=== PATIENT | female | born 1995 | race African-American/Black ===

== ENCOUNTER 2018-02-11 22:38 | Inpatient (IN) ==
[2018-02-12 00:36] LABS: Basophils % 0.2 % (0.0-0.8); Eosinophils % 0.1 % (0.00-10.9); Hematocrit 33.5 VOL% (35.7-47.0); Hemoglobin 10.9 GM/DL (12.0-16.0); Immature Granulocytes % 0.4 %; Immature Granulocytes Absolute 0.06 #; Lymphocytes # 1.5 10*3/uL (1.4-4.0); Lymphocytes % 9.8 % (21.3-54.2); Mean Corpuscular HGB Conc 32.5 GM/DL (32-36); Mean Corpuscular Hemoglobin 21 PG (27-34); Mean Corpuscular Volume 62.9 FL (87-102); Mean Platelet Volume 9.9 FL (9.6-12.0); Monocytes # 1.9 10*3/uL (0.11-0.8); Monocytes % 12.3 % (1.7-12.7); Neutrophils % 77.2 % (38.7-73.9); Platelet Count 239 T/CUMM (130-400); Red Blood Count 5.33 MC/CUMM (3.8-5.5); Red Cell Distribution Width 15.1 % (9.3-17.3); White Blood Count 15.5 T/CUMM (4-12)
[2018-02-12 00:53] LABS: Albumin 3.3 G/DL (3.4-5.0); Bilirubin,Total 0.7 MG/DL (0.2-1.0); Calcium 8.4 MG/DL (8.5-10.1); Lactic Acid 0.9 MMOL/L (0.4-2.0); Osmolality,Calculated 272.8 MOS/KG (273-304); Potassium 3.6 MMOL/L (3.5-5.1); Total Protein 7.6 G/DL (6.4-8.3)
[2018-02-12 02:05] LABS: Apearance,Urine CLEAR (Clear); Bacteria,Urine Occasional /HPF (Few); Bilirubin,Urine Negative (Negative); Blood, Urine Moderate mg/dL (Negative); Glucose,Urine (UA) Negative (Negative); Ketones,Urine 20 mg/dL (Negative); Nitrite,Urine Negative (Negative); Protein,Urine Negative; RBC,Urine 8 /HPF (0-4); Renal Epithelial Cells,Urine Occasional /HPF (<1); Squamous Epithelial Cell,Urine Occasional /HPF (0-10); Urine Color Yellow (Yellow); Urine Specific Gravity 1.014 (1.001-1.035); WBC,Urine 17 /HPF (0-6)
[2018-02-13 05:33] LABS: Basophils % 0.2 % (0.0-0.8); Eosinophils # 0.1 10*3/uL (0.0-0.87); Eosinophils % 0.5 % (0.00-10.9); Hematocrit 30.3 VOL% (35.7-47.0); Hemoglobin 9.7 GM/DL (12.0-16.0); Immature Granulocytes % 0.5 %; Immature Granulocytes Absolute 0.05 #; Lymphocytes # 1.3 10*3/uL (1.4-4.0); Lymphocytes % 12.1 % (21.3-54.2); Mean Corpuscular Hemoglobin 21 PG (27-34); Mean Corpuscular Volume 64.7 FL (87-102); Mean Platelet Volume 9.7 FL (9.6-12.0); Monocytes # 1.5 10*3/uL (0.11-0.8); Monocytes % 14.6 % (1.7-12.7); Neutrophils # 7.5 10*3/uL (1.4-7.4); Neutrophils % 72.1 % (38.7-73.9); Platelet Count 207 T/CUMM (130-400); Red Blood Count 4.68 MC/CUMM (3.8-5.5); White Blood Count 10.4 T/CUMM (4-12)
[2018-02-13 06:08] LABS: Calcium 8.2 MG/DL (8.5-10.1); Osmolality,Calculated 273.5 MOS/KG (273-304); Potassium 3.8 MMOL/L (3.5-5.1)
[2018-02-14 07:51] LABS: Basophils % 0.2 % (0.0-0.8); Eosinophils % 0.4 % (0.00-10.9); Hematocrit 28.5 VOL% (35.7-47.0); Hemoglobin 9.5 GM/DL (12.0-16.0); Immature Granulocytes % 0.5 %; Immature Granulocytes Absolute 0.05 #; Lymphocytes # 1.5 10*3/uL (1.4-4.0); Lymphocytes % 16.5 % (21.3-54.2); Mean Corpuscular HGB Conc 33.3 GM/DL (32-36); Mean Corpuscular Hemoglobin 21 PG (27-34); Mean Corpuscular Volume 62.2 FL (87-102); Mean Platelet Volume 10.3 FL (9.6-12.0); Monocytes # 1.1 10*3/uL (0.11-0.8); Monocytes % 11.8 % (1.7-12.7); Neutrophils # 6.5 10*3/uL (1.4-7.4); Neutrophils % 70.6 % (38.7-73.9); Platelet Count 213 T/CUMM (130-400); Red Blood Count 4.58 MC/CUMM (3.8-5.5); Red Cell Distribution Width 14.8 % (9.3-17.3); White Blood Count 9.2 T/CUMM (4-12)
[2018-02-14 08:27] LABS: Calcium 8.1 MG/DL (8.5-10.1); Osmolality,Calculated 273.5 MOS/KG (273-304); Potassium 3.4 MMOL/L (3.5-5.1)
[2018-02-15 06:46] LABS: Basophils % 0.4 % (0.0-0.8); Eosinophils # 0.2 10*3/uL (0.0-0.87); Eosinophils % 2.9 % (0.00-10.9); Hematocrit 28.7 VOL% (35.7-47.0); Hemoglobin 9.4 GM/DL (12.0-16.0); Immature Granulocytes % 0.3 %; Immature Granulocytes Absolute 0.02 #; Lymphocytes % 26.4 % (21.3-54.2); Mean Corpuscular HGB Conc 32.8 GM/DL (32-36); Mean Corpuscular Hemoglobin 21 PG (27-34); Mean Corpuscular Volume 62.5 FL (87-102); Mean Platelet Volume 10.5 FL (9.6-12.0); Monocytes # 0.9 10*3/uL (0.11-0.8); Monocytes % 11.5 % (1.7-12.7); Neutrophils # 4.4 10*3/uL (1.4-7.4); Neutrophils % 58.5 % (38.7-73.9); Platelet Count 251 T/CUMM (130-400); Red Blood Count 4.59 MC/CUMM (3.8-5.5); White Blood Count 7.6 T/CUMM (4-12)
[2018-02-15 07:00] LABS: Calcium 8.6 MG/DL (8.5-10.1); Osmolality,Calculated 282.8 MOS/KG (273-304); Potassium 3.5 MMOL/L (3.5-5.1)
[2018-02-15 07:39] VITALS: BP 149/92
== END 2018-02-15 11:20 | disposition home or self-care (01) | DRG 690 ==
LOC: N.EDINP 22:38 → N.ED 22:38 → SUATTDRO 02-12 01:08 → N.2E 02-12 02:05 → SUATTDRO 02-13 10:29
PROVIDERS: ADMIT Internal Medicine; ATTEND Internal Medicine

== ENCOUNTER 2019-06-24 06:16 | Inpatient (IN) ==
[2019-06-24] MEDS ORDERED: ONDANSETRON 4 MG/2 ML VIAL ONE ×2 (06:36→15:34)
[2019-06-24] MEDS ORDERED: ONDANSETRON 4 MG/2 ML VIAL IV STA ×2 (06:41→06:56)
[2019-06-24 06:43] LABS: Basophils % 0.3 % (0.0-0.8); Eosinophils # 0.1 10*3/uL (0.0-0.87); Eosinophils % 0.3 % (0.00-10.9); Hematocrit 38.8 VOL% (35.7-47.0); Hemoglobin 12.2 GM/DL (12.0-16.0); Immature Granulocytes % 0.4 %; Immature Granulocytes Absolute 0.06 #; Lymphocytes # 1.5 10*3/uL (1.4-4.0); Lymphocytes % 9.7 % (21.3-54.2); Mean Corpuscular HGB Conc 31.4 GM/DL (32-36); Mean Corpuscular Volume 65.8 FL (87-102); Mean Platelet Volume 9.8 FL (9.6-12.0); Monocytes % 5.5 % (1.7-12.7); Neutrophils % 83.8 % (38.7-73.9); Platelet Count 341 T/CUMM (130-400); Red Cell Distribution Width 16.1 % (9.3-17.3)
[2019-06-24] MEDS ORDERED: SODIUM CHLORIDE 0.9% 1,000 ML IV STA (06:56)
[2019-06-24] MEDS ORDERED: HYDROmorphone 2 MG/1 ML VIAL IV STA (06:56)
[2019-06-24 07:03] LABS: Albumin 3.8 G/DL (3.4-5.0); Bilirubin,Total 0.6 MG/DL (0.2-1.0); Calcium 9.5 MG/DL (8.5-10.1); Total Protein 8.6 G/DL (6.4-8.3)
[2019-06-24 08:01] LABS: Apearance,Urine CLEAR (Clear); Bacteria,Urine Occasional /HPF (Few); Bilirubin,Urine Negative (Negative); Blood, Urine Negative (Negative); Glucose,Urine (UA) Negative (Negative); Ketones,Urine 80 mg/dL (Negative); Mucus,Urine Many /LPF (Occasional); Nitrite,Urine Negative (Negative); Protein,Urine 100 MG/DL; RBC,Urine 7 /HPF (0-4); Squamous Epithelial Cell,Urine Occasional /HPF (0-10); Urine Color Yellow (Yellow); Urine Specific Gravity 1.033 (1.001-1.035); Urine Urobilinogen < 2.0 EU/DL (0.2-1.0); WBC,Urine <1 /HPF (0-6)
[2019-06-24] MEDS ORDERED: AMPICILLIN/SULBACTAM 3,000 MG in SODIUM CHLORIDE 0.9% 100 ML IV STA (09:29)
[2019-06-24] MEDS ORDERED: cefOXitin 2,000 MG in SYRINGE 1 EACH IV ONE (11:00)
[2019-06-24] MEDS ORDERED: fentaNYL 100 MCG/2 ML VIAL ONE ×3 (13:17→15:39)
[2019-06-24] MEDS ORDERED: TISSUE ADHESIVE 1 EACH APPLICATOR TOP ONE (13:19)
[2019-06-24] MEDS ORDERED: BUPIVACAINE 0.25% /EPI 10 ML VIAL ONE (13:19)
[2019-06-24] MEDS ORDERED: LIDOCAINE 1%/EPI INJ 20 ML VIAL ONE (13:19)
[2019-06-24] MEDS ORDERED: fentaNYL 100 MCG/2 ML VIAL IV ONE (13:24)
[2019-06-24] MEDS ORDERED: LACTATED RINGERS 1,000 ML IV SCH (13:30)
[2019-06-24] MEDS ORDERED: SUGAMMADEX 200 MG/2 ML VIAL IV ONE (14:21)
[2019-06-24] MEDS ORDERED: LIDOCAINE 2% 5 ML VIAL ONE (15:33)
[2019-06-24] MEDS ORDERED: SEVOFLURANE 1 UNIT/15 MINUTE INH ONE (15:33)
[2019-06-24] MEDS ORDERED: propofoL 200 MG/20 ML VIAL IV ONE (15:33)
[2019-06-24] MEDS ORDERED: DEXAMETHASONE 4 MG/1 ML VIAL ONE (15:34)
[2019-06-24] MEDS ORDERED: MIDAZOLAM 2 MG/2 ML VIAL ONE (15:34)
[2019-06-24] MEDS ORDERED: ROCURONIUM 100 MG/10 ML VIAL IV ONE (15:34)
[2019-06-24] MEDS ORDERED: PHENYLEPHRINE 1 MG/10 ML SYRINGE IV ONE (15:34)
[2019-06-24] MEDS ORDERED: LACTATED RINGERS 1,000 ML IV ONE (15:34)
[2019-06-24] MEDS ORDERED: KETOROLAC 30 MG/1 ML VIAL ONE (15:34)
[2019-06-24] MEDS ORDERED: ACETAMINOPHEN 1,000 MG/100 ML VIAL IV ONE (15:34)
[2019-06-24] MEDS: LACTATED RINGERS 1,000 ML IV SCH (16:10)
[2019-06-24 17:30] LABS: Basophils % 0.1 % (0.0-0.8); Hematocrit 37.1 VOL% (35.7-47.0); Hemoglobin 11.6 GM/DL (12.0-16.0); Immature Granulocytes % 0.7 %; Immature Granulocytes Absolute 0.16 #; Lymphocytes # 0.4 10*3/uL (1.4-4.0); Lymphocytes % 1.8 % (21.3-54.2); Mean Corpuscular HGB Conc 31.3 GM/DL (32-36); Mean Corpuscular Volume 66.7 FL (87-102); Mean Platelet Volume 10.7 FL (9.6-12.0); Monocytes % 4.8 % (1.7-12.7); Neutrophils % 92.6 % (38.7-73.9); Platelet Count 296 T/CUMM (130-400); Red Blood Count 5.56 MC/CUMM (3.8-5.5); Red Cell Distribution Width 15.6 % (9.3-17.3); White Blood Count 21.6 T/CUMM (4-12)
[2019-06-24 17:48] LABS: Calcium 8.7 MG/DL (8.5-10.1); Osmolality,Calculated 273.8 MOS/KG (273-304)
[2019-06-24] MEDS: KETOROLAC 15 MG/1 ML VIAL IV SCH ×2 (17:52→22:23)
[2019-06-24 18:07] LABS: Band Neutrophils 2 % (0-10); Lymphocytes 1 % (20-55); Platelet Estimate Normal; Segmented Neutrophils 93 % (50-85); Total Cells Counted 100
[2019-06-24 18:08] LABS: Anisocytosis Slight; Ovalocytes Few
[2019-06-25] MEDS: LACTATED RINGERS 1,000 ML IV SCH ×2 (00:18→08:24)
[2019-06-25] MEDS: ONDANSETRON 4 MG/2 ML VIAL IV PRN (00:19)
[2019-06-25] MEDS: HYDROmorphone 2 MG/1 ML VIAL IV PRN ×3 (00:19→20:32)
[2019-06-25] MEDS: KETOROLAC 15 MG/1 ML VIAL IV SCH ×4 (03:27→22:46)
[2019-06-25 05:32] LABS: Basophils % 0.1 % (0.0-0.8); Hematocrit 31.4 VOL% (35.7-47.0); Hemoglobin 9.9 GM/DL (12.0-16.0); Immature Granulocytes % 0.5 %; Immature Granulocytes Absolute 0.11 #; Lymphocytes # 1.2 10*3/uL (1.4-4.0); Lymphocytes % 5.5 % (21.3-54.2); Mean Corpuscular HGB Conc 31.5 GM/DL (32-36); Mean Corpuscular Volume 65.7 FL (87-102); Mean Platelet Volume 10.7 FL (9.6-12.0); Monocytes % 6.1 % (1.7-12.7); Neutrophils % 87.8 % (38.7-73.9); Platelet Count 255 T/CUMM (130-400); Red Blood Count 4.78 MC/CUMM (3.8-5.5); Red Cell Distribution Width 15.2 % (9.3-17.3); White Blood Count 22.2 T/CUMM (4-12)
[2019-06-25 05:47] LABS: Calcium 8.5 MG/DL (8.5-10.1); Osmolality,Calculated 278.5 MOS/KG (273-304)
[2019-06-25 05:55] LABS: Hypochromasia 1+; Lymphocytes 10 % (20-55); Ovalocytes Slight; Platelet Estimate Adequate; Segmented Neutrophils 82 % (50-85); Total Cells Counted 100
[2019-06-25] MEDS: PIPERACILLIN/TAZOBACTAM 3,375 MG in SODIUM CHLORIDE 0.9% 100 ML IV SCH ×3 (07:17→22:46)
[2019-06-25] MEDS: ENOXAPARIN 40 MG/0.4 ML SYRINGE SUBCUT SCH (09:24)
[2019-06-26] MEDS: KETOROLAC 15 MG/1 ML VIAL IV SCH ×4 (04:41→21:06)
[2019-06-26] MEDS: HYDROmorphone 2 MG/1 ML VIAL IV PRN (04:42)
[2019-06-26 04:48] LABS: Basophils % 0.1 % (0.0-0.8); Eosinophils % 0.2 % (0.00-10.9); Hematocrit 29.2 VOL% (35.7-47.0); Hemoglobin 9.4 GM/DL (12.0-16.0); Immature Granulocytes % 0.5 %; Immature Granulocytes Absolute 0.08 #; Lymphocytes # 1.4 10*3/uL (1.4-4.0); Lymphocytes % 8.9 % (21.3-54.2); Mean Corpuscular HGB Conc 32.2 GM/DL (32-36); Mean Corpuscular Volume 64.6 FL (87-102); Mean Platelet Volume 10.6 FL (9.6-12.0); Neutrophils % 83.3 % (38.7-73.9); Platelet Count 227 T/CUMM (130-400); Red Blood Count 4.52 MC/CUMM (3.8-5.5); Red Cell Distribution Width 15.3 % (9.3-17.3); White Blood Count 15.8 T/CUMM (4-12)
[2019-06-26 05:27] LABS: Calcium 8.3 MG/DL (8.5-10.1); Osmolality,Calculated 272.8 MOS/KG (273-304)
[2019-06-26] MEDS: PIPERACILLIN/TAZOBACTAM 3,375 MG in SODIUM CHLORIDE 0.9% 100 ML IV SCH ×3 (06:20→23:31)
[2019-06-26] MEDS: ONDANSETRON 4 MG/2 ML VIAL IV PRN ×2 (08:09→21:30)
[2019-06-26 08:43] LABS: Apearance,Urine CLEAR (Clear); Bilirubin,Urine Negative (Negative); Blood, Urine Negative (Negative); Glucose,Urine (UA) Negative (Negative); Ketones,Urine 20 mg/dL (Negative); Mucus,Urine Occasional /LPF (Occasional); Nitrite,Urine Negative (Negative); Protein,Urine 100 MG/DL; RBC,Urine 5 /HPF (0-4); Squamous Epithelial Cell,Urine Occasional /HPF (0-10); Urine Color Amber (Yellow); Urine Specific Gravity 1.036 (1.001-1.035); Urine Urobilinogen < 2.0 EU/DL (0.2-1.0); WBC,Urine 1 /HPF (0-6)
[2019-06-26] MEDS: ENOXAPARIN 40 MG/0.4 ML SYRINGE SUBCUT SCH (09:31)
[2019-06-26] MEDS: POTASSIUM CHLORIDE 20 MEQ TABLET PO PRN ×4 (09:31→16:18)
[2019-06-27] MEDS: KETOROLAC 15 MG/1 ML VIAL IV SCH ×2 (03:00→09:01)
[2019-06-27] MEDS: PIPERACILLIN/TAZOBACTAM 3,375 MG in SODIUM CHLORIDE 0.9% 100 ML IV SCH (06:18)
[2019-06-27 07:40] LABS: Basophils % 0.2 % (0.0-0.8); Eosinophils # 0.1 10*3/uL (0.0-0.87); Eosinophils % 0.8 % (0.00-10.9); Hematocrit 27.9 VOL% (35.7-47.0); Hemoglobin 8.9 GM/DL (12.0-16.0); Immature Granulocytes % 0.7 %; Immature Granulocytes Absolute 0.11 #; Lymphocytes # 1.4 10*3/uL (1.4-4.0); Lymphocytes % 8.6 % (21.3-54.2); Mean Corpuscular HGB Conc 31.9 GM/DL (32-36); Mean Corpuscular Volume 65.5 FL (87-102); Mean Platelet Volume 10.4 FL (9.6-12.0); Monocytes % 7.7 % (1.7-12.7); Platelet Count 244 T/CUMM (130-400); Red Blood Count 4.26 MC/CUMM (3.8-5.5); Red Cell Distribution Width 14.9 % (9.3-17.3); White Blood Count 16.4 T/CUMM (4-12)
[2019-06-27 08:04] LABS: Calcium 8.4 MG/DL (8.5-10.1); Osmolality,Calculated 271.8 MOS/KG (273-304)
[2019-06-27] MEDS: ONDANSETRON 4 MG/2 ML VIAL IV PRN ×2 (09:01→18:01)
[2019-06-27] MEDS: AMOXICILLIN/CLAV 875 MG TABLET PO SCH ×2 (09:01→20:45)
[2019-06-27] MEDS: ENOXAPARIN 40 MG/0.4 ML SYRINGE SUBCUT SCH (09:02)
[2019-06-28 04:41] LABS: Basophils % 0.2 % (0.0-0.8); Eosinophils # 0.1 10*3/uL (0.0-0.87); Eosinophils % 0.5 % (0.00-10.9); Hematocrit 30.3 VOL% (35.7-47.0); Hemoglobin 9.7 GM/DL (12.0-16.0); Immature Granulocytes % 0.6 %; Immature Granulocytes Absolute 0.13 #; Mean Corpuscular Volume 64.9 FL (87-102); Mean Platelet Volume 10.1 FL (9.6-12.0); Monocytes % 7.9 % (1.7-12.7); Neutrophils % 80.8 % (38.7-73.9); Platelet Count 299 T/CUMM (130-400); Red Blood Count 4.67 MC/CUMM (3.8-5.5); Red Cell Distribution Width 14.7 % (9.3-17.3); White Blood Count 20.1 T/CUMM (4-12)
[2019-06-28 05:17] LABS: Band Neutrophils 1 % (0-10); Hypochromasia 2+; Lymphocytes 10 % (20-55); Platelet Estimate Normal; Polychromasia Few; Segmented Neutrophils 84 % (50-85); Total Cells Counted 100
[2019-06-28 05:20] LABS: Calcium 8.7 MG/DL (8.5-10.1); Osmolality,Calculated 274.5 MOS/KG (273-304)
[2019-06-28] MEDS: AMOXICILLIN/CLAV 875 MG TABLET PO SCH (08:15)
[2019-06-28] MEDS: ENOXAPARIN 40 MG/0.4 ML SYRINGE SUBCUT SCH (08:47)
[2019-06-28] MEDS: PIPERACILLIN/TAZOBACTAM 3,375 MG in SODIUM CHLORIDE 0.9% 100 ML IV SCH ×2 (09:30→16:30)
[2019-06-28] MEDS: ONDANSETRON 4 MG/2 ML VIAL IV PRN ×2 (09:32→16:27)
[2019-06-28] MEDS: HYDROmorphone 2 MG/1 ML VIAL IV PRN ×2 (09:50→19:45)
[2019-06-28] MEDS: PROMETHAZINE 25 MG/1 ML VIAL IM PRN (19:46)
[2019-06-29] MEDS: PIPERACILLIN/TAZOBACTAM 3,375 MG in SODIUM CHLORIDE 0.9% 100 ML IV SCH ×3 (00:35→20:44)
[2019-06-29] MEDS: ONDANSETRON 4 MG/2 ML VIAL IV PRN ×2 (08:11→20:36)
[2019-06-29] MEDS: POTASSIUM CHLORIDE 20 MEQ TABLET PO PRN (08:12)
[2019-06-29] MEDS: PROMETHAZINE 25 MG/1 ML VIAL IM PRN (11:35)
[2019-06-29] MEDS: HYDROmorphone 2 MG/1 ML VIAL IV PRN (20:41)
[2019-06-29] MEDS: ENOXAPARIN 40 MG/0.4 ML SYRINGE SUBCUT SCH (20:43)
[2019-06-30] MEDS: ONDANSETRON 4 MG/2 ML VIAL IV PRN ×5 (01:01→23:37)
[2019-06-30] MEDS: HYDROmorphone 2 MG/1 ML VIAL IV PRN ×2 (03:29→19:42)
[2019-06-30] MEDS: PROMETHAZINE 25 MG/1 ML VIAL IM PRN (03:29)
[2019-06-30] MEDS: PIPERACILLIN/TAZOBACTAM 3,375 MG in SODIUM CHLORIDE 0.9% 100 ML IV SCH (05:12)
[2019-06-30] MEDS: CIPROFLOXACIN INJ 400 MG in PREMIX 1 EACH IV SCH ×2 (11:07→22:24)
[2019-06-30] MEDS: SCOPOLAMINE 1.5 MG PATCH TRANSDERM SCH (16:19)
[2019-06-30] MEDS: LACTATED RINGERS 1,000 ML IV SCH (17:30)
[2019-06-30] MEDS: ZALEPLON 5 MG CAPSULE PO PRN ×2 (23:38→23:55)
[2019-07-01] MEDS: LACTATED RINGERS 1,000 ML IV SCH ×3 (04:23→21:21)
[2019-07-01] MEDS: ONDANSETRON 4 MG/2 ML VIAL IV PRN ×5 (04:24→22:01)
[2019-07-01] MEDS: HYDROmorphone 2 MG/1 ML VIAL IV PRN ×3 (04:32→21:28)
[2019-07-01 05:49] LABS: Basophils % 0.2 % (0.0-0.8); Eosinophils # 0.3 10*3/uL (0.0-0.87); Eosinophils % 2.3 % (0.00-10.9); Hematocrit 28.5 VOL% (35.7-47.0); Immature Granulocytes % 0.8 %; Immature Granulocytes Absolute 0.11 #; Lymphocytes # 2.2 10*3/uL (1.4-4.0); Lymphocytes % 15.3 % (21.3-54.2); Mean Corpuscular HGB Conc 31.6 GM/DL (32-36); Mean Corpuscular Volume 64.5 FL (87-102); Mean Platelet Volume 10.3 FL (9.6-12.0); Monocytes % 9.1 % (1.7-12.7); Neutrophils % 72.3 % (38.7-73.9); Platelet Count 308 T/CUMM (130-400); Red Blood Count 4.42 MC/CUMM (3.8-5.5); Red Cell Distribution Width 14.6 % (9.3-17.3); White Blood Count 14.1 T/CUMM (4-12)
[2019-07-01 06:10] LABS: Hypochromasia 2+; Target Cells Few
[2019-07-01 06:11] LABS: Microcytosis 1+; Ovalocytes Slight; Polychromasia Slight
[2019-07-01 06:12] LABS: Platelet Estimate Normal
[2019-07-01 06:20] LABS: Calcium 8.4 MG/DL (8.5-10.1); Osmolality,Calculated 281.1 MOS/KG (273-304)
[2019-07-01] MEDS: CIPROFLOXACIN INJ 400 MG in PREMIX 1 EACH IV SCH ×2 (09:07→21:19)
[2019-07-01] MEDS: PROMETHAZINE 25 MG/1 ML VIAL IM PRN (19:14)
[2019-07-02] MEDS: ONDANSETRON 4 MG/2 ML VIAL IV PRN ×3 (04:53→19:30)
[2019-07-02] MEDS: HYDROmorphone 2 MG/1 ML VIAL IV PRN ×2 (05:15→12:41)
[2019-07-02] MEDS: LACTATED RINGERS 1,000 ML IV SCH ×2 (05:21→19:35)
[2019-07-02] MEDS: CIPROFLOXACIN INJ 400 MG in PREMIX 1 EACH IV SCH ×2 (10:43→22:45)
[2019-07-02] MEDS: ENOXAPARIN 40 MG/0.4 ML SYRINGE SUBCUT SCH (10:43)
[2019-07-02] MEDS: PROMETHAZINE 25 MG/1 ML VIAL IM PRN ×2 (12:42→21:13)
[2019-07-03] MEDS: LACTATED RINGERS 1,000 ML IV SCH ×2 (05:11→07:38)
[2019-07-03 07:48] VITALS: BP 143/85
[2019-07-03 07:51] LABS: Basophils % 0.3 % (0.0-0.8); Eosinophils # 0.4 10*3/uL (0.0-0.87); Eosinophils % 3.1 % (0.00-10.9); Hematocrit 30.2 VOL% (35.7-47.0); Hemoglobin 9.8 GM/DL (12.0-16.0); Immature Granulocytes Absolute 0.13 #; Lymphocytes % 14.9 % (21.3-54.2); Mean Corpuscular HGB Conc 32.5 GM/DL (32-36); Mean Corpuscular Volume 64.4 FL (87-102); Monocytes % 6.4 % (1.7-12.7); Neutrophils % 74.3 % (38.7-73.9); Platelet Count 321 T/CUMM (130-400); Red Blood Count 4.69 MC/CUMM (3.8-5.5); Red Cell Distribution Width 14.8 % (9.3-17.3); White Blood Count 13.4 T/CUMM (4-12)
[2019-07-03 08:11] LABS: Calcium 8.4 MG/DL (8.5-10.1); Osmolality,Calculated 269.8 MOS/KG (273-304)
[2019-07-03] MEDS ORDERED: CIPROFLOXACIN 500 MG TABLET PO SCH (09:00)
[2019-07-03] MEDS: SCOPOLAMINE 1.5 MG PATCH TRANSDERM SCH (09:29)
[2019-07-03] MEDS: ENOXAPARIN 40 MG/0.4 ML SYRINGE SUBCUT SCH (09:30)
[2019-07-04 19:01] LABS: CDT Result Positive (Negative); CDT Specimen Source STOOL
== END 2019-07-03 12:25 | disposition home or self-care (01) | DRG 339 ==
LOC: N.ED 06:16 → N.EDINP 09:56 → N.3E 10:52
PROVIDERS: ADMIT Surgery; ATTEND Surgery